=== PATIENT | male | born 1995 | race Caucasian/White ===

== ENCOUNTER 2023-08-24 08:10 | Day surgery (SDC) | payer MEDICAID ==
[2023-08-21 14:56] LABS: BASOPHILS % (AUTO) 0.2 % (0-1); EOSINOPHILS # (AUTO) 0.1 X10'3 (0-0.9); EOSINOPHILS % (AUTO) 0.9 % (0-6); LYMPHOCYTES # (AUTO) 1.8 X10'3 (1.1-4.8); LYMPHOCYTES % (AUTO) 26.3 % (21-51); MEAN CORPUSCULAR HEMOGLOBIN 29.3 PG (27.0-31.0); MEAN CORPUSCULAR HGB CONC 34.4 g/dL (33.0-36.5); MEAN CORPUSCULAR VOLUME 85.1 FL (78-98); MEAN PLATELET VOLUME 7.4 FL (7.4-10.4); MONOCYTES # (AUTO) 0.5 X10'3 (0-0.9); MONOCYTES % (AUTO) 6.9 % (2-12); NEUTROPHILS # (AUTO) 4.5 X10'3 (1.8-7.7); NEUTROPHILS % (AUTO) 65.7 % (42-75); PRE OP HEMATOCRIT 51.5 % (42.0-52.0); PRE OP HEMOGLOBIN 17.7 g/dL (14.0-17.9); PRE OP PLATELET COUNT 264 X10'3 (140-440); PRE OP WHITE BLOOD COUNT 6.9 10'3 (4.8-10.8); RED BLOOD COUNT 6.05 X10'6 (4.70-6.10); RED CELL DISTRIBUTION WIDTH 13.1 % (11.5-14.5)
[2023-08-21 15:07] LABS: ALBUMIN 4.8 G/DL (3.4-5.0); ALBUMIN/GLOBULIN RATIO 1.4 (1.1-1.5); ALKALINE PHOSPHATASE 94 IU/L (46-116); BLOOD UREA NITROGEN 13 MG/DL (7-18); BUN/CREATININE RATIO 12.4 (10.0-20.0); CALCIUM 9.4 MG/DL (8.5-10.1); CHLORIDE 100 MMOL/L (99-107); CREATININE 1.05 MG/DL (0.60-1.10); PRE OP ALT 31 U/L (30-65); PRE OP ANION GAP 8 (8-16); PRE OP AST 24 U/L (10-37); PRE OP BILIRUB, TOTAL 0.9 MG/DL (0.0-1.0); PRE OP GLUCOSE 85 MG/DL (70-104); PRE OP POTASSIUM 3.9 MMOL/L (3.4-5.1); PRE OP SODIUM 137 MMOL/L (135-145); TOTAL CARBON DIOXIDE 28.9 MMOL/L (24-32); TOTAL PROTEIN 8.2 G/DL (6.4-8.2); eGFR 84 ML/MIN
[~2023-08-24] VITALS: Ht 175.3 cm; Wt 74.8 kg
[~2023-08-24 08:10] MED LIST: NO HOME MEDS
[2023-08-24 08:15] VITALS: BP 134/82; PULSE 93; RESP 16; TEMP 98.6; O2SAT 100; O2SAT 93
[2023-08-24] MEDS ORDERED: ringers solution, lacted 1,000 ML IV SCH ×2 (08:53→11:05)
[2023-08-24] MEDS ORDERED: famotidine 20mg tablet PO ONE (08:53)
[2023-08-24] MEDS ORDERED: cefazolin 2gm/D5W 100mL 100 ML IV ONE (08:53)
[2023-08-24] MEDS ORDERED: BUPIVAcaine/PF 2.5mg/ml (0.25%) 10ml vial ONE (09:33)
[2023-08-24] MEDS ORDERED: LIDOcaine 2% (20mg/ml) 5ml vial ONE (09:33)
[2023-08-24] MEDS ORDERED: midazolam 1 mg/ML 2ml injection ONE (09:46)
[2023-08-24] MEDS ORDERED: fentaNYL/PF 50MCG/1 ML 2ML syringe ONE (09:46)
[2023-08-24] MEDS ORDERED: propofol inj 20 ML IV ONE (10:21)
[2023-08-24 10:24] VITALS: BP 120/97; PULSE 92; RESP 16; O2SAT 99
[2023-08-24 10:30] VITALS: BP 119/96; PULSE 74; RESP 20; O2SAT 98
[2023-08-24 10:40] VITALS: BP 119/97; PULSE 81; RESP 14; O2SAT 98
[2023-08-24 10:50] VITALS: BP 127/97; PULSE 74; RESP 19; O2SAT 100
[2023-08-24 11:00] VITALS: BP 111/83; PULSE 68; RESP 17; O2SAT 99
[2023-08-24] MEDS ORDERED: morphine 4 MG/ML inj SYRINge IV PRN (11:05)
[2023-08-24] MEDS ORDERED: ondansetron/PF 4mg/2ml inj IV PRN (11:05)
[2023-08-24] MEDS ORDERED: proCHLORperazine 10 MG/2 ml inj IV PRN (11:05)
[2023-08-24] MEDS ORDERED: morphine 2 MG/ML inj. syringe IV PRN (11:05)
[2023-08-24] MEDS ORDERED: meperidine/PF 25mg/ml syringe IV PRN ×3 (11:05)
== END 2023-08-24 11:14 | disposition home or self-care (01) ==
LOC: PAS 08:10
PROVIDERS: ATTEND Orthopaedic Surgery Hand Surgery
DX: S66.322A Laceration of extensor muscle, fascia and tendon of right middle finger at wrist and hand level, initial encounter (principal); Z79.899 Other long term (current) drug therapy; Z87.891 Personal history of nicotine dependence; W22.09XA Striking against other stationary object, initial encounter; Y93.89 Activity, other specified; Y92.89 Other specified places as the place of occurrence of the external cause; Y99.8 Other external cause status
CPT/HCPCS: 26418; 36415; 80053; 82948; 85025; J0690; J2250; J2704; J3010; J3490; J7030; J7120; Z7506; Z7512; A4215; A4618; A7000